=== PATIENT | female | born 1985 | race Caucasian/White ===

== ENCOUNTER 2021-03-04 22:35 | Emergency (ER) | payer MEDICAID, SELFPAY ==
[2021-03-04 22:36] VITALS: BP 123/75; PULSE 100; RESP 18; TEMP 36.4; O2SAT 95; BMI 34.7
--- NOTE | 2021-03-04 22:53 | EX.ED.UPPERE ---
HPI History of Present Illness Chief Complaint: Upper Extremity Injury Informant: patient Narrative Narrative: Patient is a 35-year-old previously healthy female who presents to the emergency department for hand pain. She states that this initially started 1 week ago whenever she struck her hand against a coffee table. The pain has been significantly getting worse. The pain is mostly in the fingers. The ring finger has become swollen and red and very tender to touch. She has been taking Advil for this at home which has not been giving her significant relief. She denies any pain going up the arm. No fevers or chills. No chest pain, shortness of breath. No abdominal pain or nausea/vomiting. She has never had this happen before. PFSH PFSH Home Medications amoxicillin-pot clavulanate [Augmentin] 1 tab PO BID 7 Days #14 tab 03/04/21 [Rx Last Taken Unknown] Allergy/AdvReac Type Severity Reaction Status Date / Time No Known Allergies Allergy Verified 03/04/21 22:38 Social History Smoking Status: Current every day smoker tobacco type: cigarettes ROS ROS ED Constitutional Constitutional ED: Denies chills or fever(s) Eyes Eyes: Denies change in vision ENT ENT ED: Denies epistaxis or rhinorrhea Cardiovascular Cardiovascular: Denies chest pain or palpitations Respiratory/Chest Respiratory/Chest: Denies cough, dyspnea or dyspnea on exertion Gastrointestinal Gastrointestinal: Denies abdominal pain, diarrhea, nausea or vomiting Musculoskeletal Musculoskeletal: Denies back pain or neck pain Neurologic Neurologic: Denies dizziness, headache(s) or weakness EXAM Physical Exam Const Vital Signs: 03/04/21 22:36 Temperature 97.6 F L Temperature Source Temporal Pulse Rate 100 Respiratory Rate 18 Blood Pressure 123/75 H Blood Pressure Mean 91 Pulse Ox 95 Oxygen Delivery Method Room Air Positive well nourished and well developed General Appearance ED: well developed and NAD HEENT Reports normocephalic, head/scalp atraumatic and moist mucous membranes Eyes PERRL and EOMs intact bilaterally Neck supple Resp normal respiratory effort and clear to auscultation bilaterally Auscultation: Negative for rales, rhonchi or wheezes Cardio regular rate, regular rhythm and no murmurs Extremity Extremity Narrative: Right hand ring finger is very tender to palpation. The distal portion is swollen. There is a purulent collection at nail be consistent with the paronychia. She otherwise is neurovascularly intact. Neuro no sensory deficits noted Sensorium / Orientation: alert Motor Exam: strength 5/5 throughout Psych mental status grossly normal Skin no rashes or lesions noted MDM MDM MDM Narrative Medical decision making narrative: Patient presents the ED for hand pain. On exam for 1 finger does appear to have a paronychia with purulent collection. I believe that this is causing majority of her pain as no other finger is tender to palpation except that 1. I do not feel any imaging is necessary at this time. Procedure: Consent obtained verbally. Digital block was performed after alcohol wipe to cleanse the area. 3 cc of 2% lidocaine instilled. 2 small incisions were made on the lateral finger just inferior to nail. A moderate amount of purulent material was expressed. Patient tolerated this well without apparent complication. Antibiotic ointment was applied as well as Band-Aid. Patient placed on Augmentin. She is given a PCP referral for wound follow-up. Return precautions are reviewed including any significant swelling of the finger, streaking or systemic symptoms. She understands and is agreeable this plan. Discharged home in stable condition. All questions were answered. Discharge Plan Triage Chief Complaint: Upper Extremity Injury ED Provider: Prashant Walters Dx/Rx/DC Orders Clinical Impression: Paronychia Instructions: ED Paronychia of the Finger or Toe Prescriptions: New amoxicillin-pot clavulanate [Augmentin] 875-125 mg tablet 1 tab PO BID 7 Days Qty: 14 RF: 0 Primary Care Provider: Care Physician,No Primary Referrals: Law Giles DO [NON-STAFF] - 3-5 Days Care Physician,No Primary [Primary Care Provider] - Disposition Disposition: Home, Self Care Discharge Date/Time: 03/04/21 23:41
[2021-03-04] MEDS: Lidocaine 1% (20 ml mdv) 20 ML Vial 5 ML INFILT (22:54)
[2021-03-04] MEDS: Amox/Clavulanate 875 MG Tablet PO (23:41)
== END 2021-03-04 23:41 | disposition home or self-care (01) ==
PROVIDERS: Emergency Provider Emergency Medicine
DX: L03.011 Cellulitis of right finger (principal); F17.210 Nicotine dependence, cigarettes, uncomplicated
CPT/HCPCS: 10060; 99283

== ENCOUNTER 2021-03-07 00:21 | Emergency (ER) | payer MEDICAID, SELFPAY ==
[2021-03-07 00:22] VITALS: TEMP 36.4; BMI 34.7
[2021-03-07 00:26] VITALS: BP 146/88; PULSE 105; RESP 18; O2SAT 97
--- NOTE | 2021-03-07 01:23 | EX.ED.UPPERE ---
HPI History of Present Illness HPI Narrative: Patient presents with pain and swelling to her right ring finger that has been getting worse over the past week. Patient was seen here 2 days ago and had incision and drainage performed. Patient was started on Augmentin. Patient states that the pain and swelling has gotten worse. Patient denies any further drainage. Patient denies any fevers or chills. Patient states she has been taking ibuprofen with some relief. Patient denies any new injuries. Chief Complaint: Wound Informant: patient Onset/Context/Timing Onset: Weeks (1) Context: Gradual Onset Timing: Continuous Quality of Pain: Sharp, Aching and Throbbing Location: Right ring finger Worsened by: Nothing Relieved by: Ibuprofen Associated Symptoms Associated Symptoms: Negative for Parasthesia, Weakness and Loss of Funtion PFSH PFSH no medical history Home Medications amoxicillin-pot clavulanate [Augmentin] 1 tab PO BID 7 Days #14 tab 03/04/21 [Rx Last Taken Unknown] Allergy/AdvReac Type Severity Reaction Status Date / Time No Known Allergies Allergy Verified 03/07/21 00:22 no surgical history Social History Smoking Status: Current every day smoker tobacco type: cigarettes ROS ROS ED Constitutional Constitutional ED: Denies chills or fever(s) Eyes Eyes: Denies blurry vision or change in vision ENT ENT ED: Denies rhinorrhea or sore throat Cardiovascular Cardiovascular: Denies chest pain or palpitations Respiratory/Chest Respiratory/Chest: Denies cough or dyspnea Gastrointestinal Gastrointestinal: Denies nausea or vomiting Genitourinary Genitourinary ED: Denies dysuria or hematuria Musculoskeletal Musculoskeletal: Denies back pain or neck pain Integumentary Reports abscess; Denies rash Neurologic Neurologic: Denies headache(s) or weakness Allergic/Immunologic Allergic/Immunologic ED: Denies mouth swelling or urticaria EXAM Physical Exam Const Vital Signs: 03/07/21 00:22 03/07/21 00:26 Temperature 97.5 F L Temperature Source Temporal Pulse Rate 105 H Respiratory Rate 18 Blood Pressure 146/88 H Blood Pressure Mean 107 Pulse Ox 97 Oxygen Delivery Method Room Air Room Air Positive well nourished, well developed and obese General Appearance ED: well developed Nutritional Appearance: obese HEENT Reports moist mucous membranes Neck full ROM Extremity Extremity Narrative: There is tenderness and edema over the distal phalanx of the right ring finger. There is no discharge or drainage. There is some mild fluctuance. Range of motion was limited in flexion extension of the DIP and PIP joint secondary to pain. Sensation was intact to light touch in all digits. Capillary refill was less than 2 seconds in all digits. Neuro oriented x3, CN's II-XII intact bilaterally, moves all extremities, no focal motor deficits and no sensory deficits noted Sensorium / Orientation: alert Psych mental status grossly normal MDM MDM MDM Narrative Medical decision making narrative: The right ring finger was anesthetized 1% plain lidocaine via digital block. An 11 blade scalpel was used to make a linear incision along the midline of the distal phalanx of the right ring finger. There is moderate amount of purulent drainage. The wound was probed with hemostats. There is more purulent drainage expressed from the pad of the finger. The wound was irrigated with copious amounts of normal saline. The wound was left open. Bacitracin dressing was applied. Patient tolerated the procedure well. Patient was instructed to continue her Augmentin as prescribed. Patient was instructed to follow-up with her primary care physician in 3 to 5 days for wound recheck. Patient understood and was agreeable with the plan. All questions were answered. Procedures Other Procedures Procedure(s): Incision and drainage Discharge Plan Triage Chief Complaint: Wound ED Provider: Nakul Wetzel Dx/Rx/DC Orders Clinical Impression: Felon of finger of right hand Instructions: ED Paronychia of the Finger or Toe Prescriptions: No Action amoxicillin-pot clavulanate [Augmentin] 875-125 mg tablet 1 tab PO BID 7 Days Qty: 14 RF: 0 Primary Care Provider: Care Physician,No Primary Referrals: Praful Chavez MD [NON-STAFF] - 3-5 Days Care Physician,No Primary [Primary Care Provider] - Disposition Disposition: Home, Self Care
== END 2021-03-07 02:28 | disposition home or self-care (01) ==
PROVIDERS: Emergency Provider Emergency Medicine
DX: L03.011 Cellulitis of right finger (principal); E66.9 Obesity, unspecified; F17.210 Nicotine dependence, cigarettes, uncomplicated; Z68.34 Body mass index [BMI] 34.0-34.9, adult
CPT/HCPCS: 26011; 10060; 99283

== ENCOUNTER 2022-11-16 20:31 | Emergency (ER) | payer MEDICAID, SELFPAY ==
[2022-11-16 20:32] VITALS: BP 174/89; PULSE 88; RESP 16; TEMP 36.8; O2SAT 99; BMI 35.7
--- NOTE | 2022-11-16 22:16 | ED.VIS.DENTA ---
HPI History of Present Illness Chief Complaint: Dental Informant: patient Onset/Context/Timing Onset: Weeks (1) Context: Gradual Onset Timing: Continuous Quality: Aching Location: Left lower molars and premolars Worsened by: Hot and cold liquids Relieved by: - (Nothing) Associated Symptoms Assocated Symptom - Dental: jaw swelling, face swelling, cold sensitivity and hot sensitivity; Negative for fever Narrative Narrative: Patient presents with left lower dental pain that has been getting worse over the past week. Patient describes the pain as aching. Patient admits to hot and cold sensitivity. Patient admits to some swelling over her left mandible. Patient states she has some pain radiating to her ear and into her neck. Patient denies any difficulty breathing or difficulty swallowing. Patient denies any fevers or chills. Patient has not seen her dentist for this. PFSH PFSH Medical History no medical history no medical history Home Medications amoxicillin 875 mg-potassium clavulanate 125 mg tablet (Augmentin) 1 tab PO BID 7 days #14 tabs 03/04/21 [Rx Last Taken Unknown] penicillin V potassium 500 mg tablet 500 mg PO 4X/DAY #40 tabs 11/16/22 [Rx Last Taken Unknown] Allergy/AdvReac Type Severity Reaction Status Date / Time No Known Allergies Allergy Verified 11/16/22 20:35 Surgical History no surgical history no surgical history Social History Smoking Status: Current every day smoker tobacco type: cigarettes ROS ROS ED Constitutional Constitutional ED: Denies chills or fever(s) Eyes Eyes: Denies blurry vision or change in vision ENT ENT ED: Reports ear pain left; Denies rhinorrhea or sore throat Cardiovascular Cardiovascular: Denies chest pain or palpitations Respiratory/Chest Respiratory/Chest: Denies cough or dyspnea Gastrointestinal Gastrointestinal: Denies nausea or vomiting Genitourinary Genitourinary ED: Denies dysuria or hematuria Musculoskeletal Musculoskeletal: Reports neck pain; Denies back pain Integumentary Denies abscess or rash Neurologic Neurologic: Denies headache(s) or weakness Allergic/Immunologic Allergic/Immunologic ED: Denies mouth swelling or urticaria EXAM Physical Exam Const Vital Signs: 11/16/22 20:32 Temperature 98.2 F Temperature Source Temporal Pulse Rate 88 Respiratory Rate 16 Blood Pressure 174/89 H Blood Pressure Mean 117 Pulse Ox 99 Oxygen Delivery Method Room Air Positive well nourished, well developed and obese General Appearance ED: well developed and NAD Nutritional Appearance: obese HEENT Mouth ED: Yes oral and palatal mucosa normal Mouth: oral and palatal mucosa normal Teeth and Gingiva: caries and gingiva abnormal Positive for gingival edema Throat: posterior oropharynx normal Neck supple and no JVD General: normal visual inspection and tenderness; Negative for anterior neck swelling or submandibular swelling Lymph Lymphatic: lymphadenopathy Lymphadenopathy Laterality: left Neuro oriented x3, CN's II-XII intact bilaterally, moves all extremities, no focal motor deficits and no sensory deficits noted Sensorium / Orientation: alert Motor Exam: strength 5/5 throughout Psych mental status grossly normal MDM MDM MDM Narrative Medical decision making narrative: Patient was advised that this is a infected dental carry. Patient was given a dose of Pen-Vee K here. Patient was given a prescription for Pen-Vee K. Patient was given a prescription for Naprosyn. Patient was instructed to follow-up with a dentist in 5 to 7 days. Patient understood and was agreeable with the plan. All questions were answered. Discharge Plan Triage Chief Complaint: Dental ED Provider: Nakul Wetzel Dx/Rx/DC Orders Clinical Impression: Infected dental caries Instructions: ED Dental Abscess Prescriptions: New penicillin V potassium 500 mg tablet 500 mg PO 4X/DAY Qty: 40 0RF No Action amoxicillin-pot clavulanate [Augmentin] 875-125 mg tablet 1 tab PO BID 7 Days Qty: 14 0RF Primary Care Provider: Care Physician,No Primary Referrals: Care Physician,No Primary [Primary Care Provider] - Dentist,Your [STAFF PHYSICIAN] - 5-7 Days Disposition Disposition: Home, Self Care
[2022-11-16] MEDS: Penicillin Vk 250 MG Tablet 500 MG PO (22:31)
== END 2022-11-16 22:34 | disposition home or self-care (01) ==
PROVIDERS: Emergency Provider Emergency Medicine; Visit Provider Emergency Medicine
DX: K02.9 Dental caries, unspecified (principal); F17.210 Nicotine dependence, cigarettes, uncomplicated; E66.9 Obesity, unspecified
CPT/HCPCS: 99283